=== PATIENT | female | born 1975 | race Hispanic/Latino ===

== ENCOUNTER → 2017-03-17 | Outpatient (CLI) | payer BC, OTHER | LOC: RAH 10:58 | PROVIDERS: ATTEND Family Medicine | DX: Z02.71 Encounter for disability determination (principal); M47.894 Other spondylosis, thoracic region | CPT/HCPCS: 72070 ==

== ENCOUNTER 2018-05-11 09:34 | Emergency (ER) | payer BC ==
[2018-05-11 10:42] LABS: APPEARANCE,URINE Clear (CLEAR); BILIRUBIN,URINE Negative (NEGATIVE); COLOR,URINE Yellow (YELLOW); GLUCOSE, URINE (UA) Negative (NEGATIVE); KETONES,URINE Negative (NEGATIVE); LEUKOCYTE ESTERASE ,URINE Moderate (NEGATIVE); NITRATE,URINE Negative (NEGATIVE); OCCULT BLOOD,URINE Trace (NEGATIVE); PROTEIN,URINE Negative (NEGATIVE)
[2018-05-11 10:50] LABS: AMPHET/METH SCREEN,URINE NEGATIVE (NEGATIVE); BARBITURATE SCREEN, URINE NEGATIVE (NEGATIVE); BASOPHILS % (AUTO) 0.4 % (0.0-5.0); BENZODIAZEPINES SCREEN,URINE NEGATIVE (NEGATIVE); CANNABINOID SCREEN,URINE NEGATIVE (NEGATIVE); COCAINE SCREEN,URINE NEGATIVE (NEGATIVE); EOSINOPHILS % (AUTO) 1.1 % (0.0-8.0); HEMATOCRIT 42.5 % (36-48); LYMPHOCYTES % (AUTO) 23.9 % (21.0-51.0); MEAN CORPUSCULAR HEMOGLOBIN 30.4 pg (27.0-33.0); MEAN CORPUSCULAR VOLUME 89.5 fL (79-99); MONOCYTES % (AUTO) 4.9 % (3.0-13.0); NEUTROPHILS % (AUTO) 69.7 % (40.0-77.0); OPIATE SCREEN,URINE NEGATIVE (NEGATIVE); PHENCYCLIDINE SCREEN,URINE NEGATIVE (NEGATIVE); PLATELET COUNT (AUTO) 232 K/uL (130-400); RED BLOOD CELL COUNT(AUTO) 4.75 MIL/uL (4.00-5.50); RED CELL DISTRIBUTION WIDTH 12.8 % (11.0-15.5); WHITE BLOOD COUNT (AUTO) 7.6 K/uL (4.8-10.8)
[2018-05-11 10:51] LABS: CREATININE 0.6 mg/dL (0.5-1.5); POTASSIUM 4.1 mmol/L (3.5-5.1)
[2018-05-11 10:56] LABS: ALBUMIN 3.8 g/dL (3.5-5.0); BILIRUBIN,TOTAL 0.3 mg/dL (0.2-1.0); TOTAL PROTEIN, SERUM 7.6 g/dL (6.0-8.3)
[2018-05-11 11:09] LABS: PARTIAL THROMBOPLASTIN TIME 25.6 SEC (26.3-35.5); PROTHROMBIN TIME 10.5 SEC (9.6-11.6)
[2018-05-11 11:15] LABS: HCG,QUAL RESULT NEGATIVE (NEGATIVE)
[2018-05-11 11:21] LABS: BACTERIA,URINE Rare /HPF (None Seen); MUCUS,URINE Few LPF (None Seen); RBC,URINE 0-1 /HPF (0-1); SQUAMOUS EPITHELIAL CELL,UR Few /HPF (0-2)
== END 2018-05-11 11:14 | disposition home or self-care (01) ==
LOC: EDH 09:34
DX: G51.0 Bell's palsy (principal); F41.9 Anxiety disorder, unspecified; Z98.51 Tubal ligation status; Z98.890 Other specified postprocedural states
CPT/HCPCS: 36415; 70450; 80053; 80305; 81001; 81025; 82550; 84484; 85025; 85610; 85730; 93005

== ENCOUNTER 2022-08-31 08:22 | Emergency (ER) | payer BC ==
[~2022-08-31] VITALS: Ht 167.6 cm; Wt 86.2 kg
[2022-08-31 11:23] VITALS: BP 133/78; PULSE 88; RESP 20
[2022-08-31] MEDS ORDERED: IBUPROFEN 600 MG TABLET ONE (11:30)
[2022-08-31] MEDS ORDERED: IBUPROFEN 600 MG TABLET PO ONE (11:30)
== END 2022-08-31 12:26 | disposition home or self-care (01) ==
LOC: EDH 08:22
DX: S09.8XXA Other specified injuries of head, initial encounter (principal); M25.551 Pain in right hip; F41.9 Anxiety disorder, unspecified; W01.0XXA Fall on same level from slipping, tripping and stumbling without subsequent striking against object, initial encounter; Y93.89 Activity, other specified; Y92.89 Other specified places as the place of occurrence of the external cause; Y99.8 Other external cause status
CPT/HCPCS: 70450; 72125